=== PATIENT | female | born 1930 | race Caucasian/White ===

== ENCOUNTER 2017-01-20 18:34 | Inpatient (IN) | payer MEDICARE, BC ==
[~2017-01-20 18:34] MED LIST: ALBUTEROL17 GM; AMOXICILLIN500 MG PO; APRESOLINE25 MG/TAB PO; ASPIR 8181 MG PO; ASPIRIN EC81 MG PO; BABY ASPIRIN81 MG PO; BRILINTA90 M1 PO; CALCIUM-MAGNES1 EA10 PO; CEFDINIR300 M1 PO; CEPHALEXIN500 MG PO; COQ-10100 MG PO; COQ-1030 M1 PO; DILTIAZEM 24HR240 M3 PO; DILTIAZEM 24HR240 MG PO; DILTIAZEM ER120 M3 PO; DILTIAZEM XR240 M; FISH OIL 1,0001 EAC8 PO; FISH OIL 11000 MG/CA PO; FISH OIL SOFTGE1 CA1 PO; GAS-X125 MG PO; HYDROCODON-ACE1 EA16 PO; IMDUR30 MG PO; IMDUR60 MG PO; ISOSORBIDE MONO60 M3 PO; KEFLEX500 MG PO; LOPRESSOR50 MG; LORTAB 5-325 M1 EAC1 PO; LOSARTAN POTASS50 M1 PO; LOSARTAN POTASS50 MG PO; MACROBID 100 M100 M1 PO; MACROBID 100 M100 MG PO; METOPROLOL SUCC25 M1 PO; METOPROLOL SUCC50 M1 PO; METOPROLOL TART25 M1 PO; METOPROLOL TART50 MG PO; NIACIN50; NIACIN500 M2 PO; NIACIN500 MG PO; NIASPAN500 M1 PO; NITROGLYCERIN0.4 M2 SL; NITROSTAT0.4 MG SL; NORCO 5/325 TAB1 TAB PO; NORVASC5 M2 PO; PAROXETINE HCL10 M2 PO; PROAIR HFA8.5 GM IH; PROTONIX40 M1 PO; PROTONIX40 MG PO; RANEXA1000 M1 PO; RANEXA500 M1 PO; RANEXA500 MG PO; SUPER B COMPLEX1 CAP PO; SUPER B WITH V1 EACH PO; TYLENOL325 MG PO; ULTRAM50 MG PO; VICODIN 5/500 T1 TAB PO; VITAMIN B; VITAMIN B-500 MCG/TA PO; VITAMIN B122500 MC1 PO; VITAMIN C; VITAMIN C500 M3 PO; VITAMIN D-32000 UNI3 PO; VITAMIN D31000 UNI3 PO; WAL-PROFEN200 M1 PO
[2017-01-20 19:10] LABS: BASO % 0.2 % (0-2); HCT-HEMATOCRIT 28.5 % (34.0-49.0); HGB-HEMOGLOBIN 10.7 gm/dl (12.0-15.5); IMMATURE GRANULOCYTES ABSOLUTE 0.03 tho/cmm (0-0.03); IMMATURE GRANULOCYTES PERCENT 0.5 % (0-0.3); LYMPH % 21.6 % (20-45); LYMPH ABSOLUTE COUNT 1.4 tho/cmm (0.8-4.5); MCH (MEAN CORPUSCULAR HGB) 35.7 pg (28.0-32.0); MCHC MEAN CORPUSCULAR HGB CONC 37.5 % (32.0-36.0); MEAN PLATELET VOLUME 8.6 cmc (9.4-12.4); MONO % 10.2 % (0-12); MONOCYTE ABSOLUTE COUNT 0.6 tho/cmm (0.0-1.2); NEUTROPHIL ABSOLUTE COUNT 4.3 tho/cmm (1.6-8.0); NEUTROPHIL-AUTOMATED 4.3 tho/cmm (1.6-8.0); NEUTROPHILS % 67.5 % (40-80); PLATELET COUNT 224 tho/cmm (150-450); RED CELL DISTRIBUTION WIDTH 13.7 % (12.4-16.4); WHITE BLOOD COUNT 6.3 tho/cmm (4.0-10.0)
[2017-01-20 19:33] LABS: ALB/GLOB RATIO 0.3 (0.8-2.0); ALBUMIN 2.8 g/dl (3.5-5.0); ALKALINE PHOSPHATASE 50 U/L (33-138); ALT/SGPT 20 U/L (12-78); BILIRUBIN,TOTAL 0.5 mg/dl (0-1.5); BLOOD UREA NITROGEN 25 mg/dl (6-24); CALCIUM 8.4 mg/dl (8.5-10.5); CARBON DIOXIDE-VENOUS 23 mmol/L (22-32); CHLORIDE 87 mmol/l (96-110); GLUCOSE 107 mg/dL (70-110); eGFR VALUE FOR BLACK 68 mL/Min
[2017-01-20 19:43] LABS: ANION GAP 14 mmol/L (0-20); AST/SGOT 32 U/L (10-40); POTASSIUM 4.1 mmol/L (3.7-5.1)
[2017-01-20 19:44] LABS: SODIUM 120 mmol/L (135-145)
[2017-01-20 20:01] LABS: PROCALCITONIN 0.08 ng/ml (0.05-0.09)
[2017-01-20] MEDS ORDERED: ZITHROMAX250 M1 PO (20:15)
[2017-01-20] MEDS ORDERED: PROAIR RESPICL90 MCG INH (20:16)
[2017-01-20 21:17] LABS: ABG CO2 ARTERIAL 23 mmol/L (21-27); ARTERIAL BLD GAS O2 SATURATION 94 % (95-98); ARTERIAL BLOOD GAS PCO2 36 mmHg (32-45); ARTERIAL PO2 73 mmHg (70-100); BICARBONATE 22 mmol/L (21-28); BLOOD GAS BASE EXCESS -2 mM/L (-/+3); PH 7.41 Units (7.35-7.45)
[2017-01-21 00:14] LABS: URINE APPEARANCE CLEAR; URINE BILIRUBIN NEGATIVE (NEG); URINE BLOOD NEGATIVE (NEG); URINE COLOR BROWN; URINE GLUCOSE (UA) NEGATIVE (NEG); URINE KETONE MODERATE (NEG); URINE LEUKOCYTE ESTERASE POSITIVE (NEG); URINE NITRITE NEGATIVE (NEG); URINE PROTEIN MODERATE (NEG)
[2017-01-21 00:28] LABS: URINE EPITHELIAL CELLS 0-3 /[HPF] (0-10); URINE RBC 0 /[HPF] (0-5); URINE WBC 0-3 /[HPF] (0-5)
[2017-01-21 02:00] LABS: BASO % 0.2 % (0-2); IMMATURE GRANULOCYTES ABSOLUTE 0.03 tho/cmm (0-0.03); IMMATURE GRANULOCYTES PERCENT 0.5 % (0-0.3); LYMPH % 19.7 % (20-45); LYMPH ABSOLUTE COUNT 1.2 tho/cmm (0.8-4.5); MCHC MEAN CORPUSCULAR HGB CONC 36.7 % (32.0-36.0); MCV (MEAN CELL VOLUME) 95.5 fl (82.0-96.0); MEAN PLATELET VOLUME 8.7 cmc (9.4-12.4); MONO % 4.2 % (0-12); MONOCYTE ABSOLUTE COUNT 0.3 tho/cmm (0.0-1.2); NEUTROPHIL ABSOLUTE COUNT 4.5 tho/cmm (1.6-8.0); NEUTROPHIL-AUTOMATED 4.5 tho/cmm (1.6-8.0); NEUTROPHILS % 75.4 % (40-80); PLATELET COUNT 224 tho/cmm (150-450); RED BLOOD COUNT 3.14 mil/cmm (4.00-5.20); RED CELL DISTRIBUTION WIDTH 13.7 % (12.4-16.4)
[2017-01-21 02:10] LABS: ANION GAP 13 mmol/L (0-20); BLOOD UREA NITROGEN 18 mg/dl (6-24); CALCIUM 8.5 mg/dl (8.5-10.5); CARBON DIOXIDE-VENOUS 24 mmol/L (22-32); CHLORIDE 89 mmol/l (96-110); CREATININE 0.82 mg/dl (0.50-1.10); GLUCOSE 111 mg/dL (70-110); SODIUM 122 mmol/L (135-145); eGFR VALUE FOR BLACK 76 mL/Min
[2017-01-21 02:11] LABS: POTASSIUM 3.8 mmol/L (3.7-5.1)
--- NOTE | 2017-01-21 10:46 | NUR ---
VIRTUAL CARE NOTE: PT SITTING ON CHAIR, TV ON LOUND, CAN'T HEAR EACH OTHER WELL. TEST HOLE DRILLER WAS IN THE ROOM TO HELP PT, NO FURHTER NEEDS AT THIS TIME. CHART REVIEWED. WILL CON'T TO MONITOR.
[2017-01-21 13:31] LABS: OSMOLALITY 271 mOsm/kg (275-295)
[2017-01-22 00:12] LABS: URINE PRT/CR RATIO 2.49 Ratio (0.0-0.20); URINE TOTAL PROTEIN-RANDOM 102.1 mg/dl (<11.8)
[2017-01-22 04:57] LABS: BASO % 0.1 % (0-2); HCT-HEMATOCRIT 29.3 % (34.0-49.0); HGB-HEMOGLOBIN 10.8 gm/dl (12.0-15.5); IMMATURE GRANULOCYTES ABSOLUTE 0.09 tho/cmm (0-0.03); IMMATURE GRANULOCYTES PERCENT 0.9 % (0-0.3); LYMPH % 15.5 % (20-45); LYMPH ABSOLUTE COUNT 1.5 tho/cmm (0.8-4.5); MCH (MEAN CORPUSCULAR HGB) 35.1 pg (28.0-32.0); MCV (MEAN CELL VOLUME) 95.1 fl (82.0-96.0); MEAN PLATELET VOLUME 8.6 cmc (9.4-12.4); MONO % 4.5 % (0-12); MONOCYTE ABSOLUTE COUNT 0.4 tho/cmm (0.0-1.2); NEUTROPHIL ABSOLUTE COUNT 7.6 tho/cmm (1.6-8.0); NEUTROPHIL-AUTOMATED 7.6 tho/cmm (1.6-8.0); PLATELET COUNT 232 tho/cmm (150-450); RED BLOOD COUNT 3.08 mil/cmm (4.00-5.20); RED CELL DISTRIBUTION WIDTH 13.6 % (12.4-16.4)
[2017-01-22 04:58] LABS: MCHC MEAN CORPUSCULAR HGB CONC 36.9 % (32.0-36.0); WHITE BLOOD COUNT 9.6 tho/cmm (4.0-10.0)
[2017-01-22 05:14] LABS: OSMOLALITY 266 mOsm/kg (275-295)
[2017-01-22 05:17] LABS: ANION GAP 11 mmol/L (0-20); BLOOD UREA NITROGEN 18 mg/dl (6-24); CALCIUM 8.3 mg/dl (8.5-10.5); CARBON DIOXIDE-VENOUS 28 mmol/L (22-32); CHLORIDE 87 mmol/l (96-110); GLUCOSE 165 mg/dL (70-110); MAGNESIUM 1.8 mg/dl (1.3-2.6); SODIUM 123 mmol/L (135-145)
[2017-01-22 05:23] LABS: CREATININE 0.85 mg/dl (0.50-1.10); eGFR VALUE FOR BLACK 72 mL/Min
[2017-01-23 05:01] LABS: ANION GAP 11 mmol/L (0-20); BLOOD UREA NITROGEN 23 mg/dl (6-24); CALCIUM 8.5 mg/dl (8.5-10.5); CARBON DIOXIDE-VENOUS 29 mmol/L (22-32); CHLORIDE 88 mmol/l (96-110); CREATININE 0.86 mg/dl (0.50-1.10); MAGNESIUM 1.9 mg/dl (1.3-2.6); POTASSIUM 3.4 mmol/L (3.7-5.1); SODIUM 125 mmol/L (135-145); eGFR VALUE FOR BLACK 71 mL/Min
[2017-01-23 05:22] LABS: GLUCOSE 125 mg/dL (70-110)
[2017-01-24 05:33] LABS: BASO % 0.2 % (0-2); HCT-HEMATOCRIT 30.5 % (34.0-49.0); IMMATURE GRANULOCYTES PERCENT 1.6 % (0-0.3); LYMPH % 25.3 % (20-45); LYMPH ABSOLUTE COUNT 1.6 tho/cmm (0.8-4.5); MCH (MEAN CORPUSCULAR HGB) 34.5 pg (28.0-32.0); MCHC MEAN CORPUSCULAR HGB CONC 36.1 % (32.0-36.0); MCV (MEAN CELL VOLUME) 95.6 fl (82.0-96.0); MEAN PLATELET VOLUME 8.6 cmc (9.4-12.4); MONO % 6.2 % (0-12); MONOCYTE ABSOLUTE COUNT 0.4 tho/cmm (0.0-1.2); NEUTROPHIL ABSOLUTE COUNT 4.2 tho/cmm (1.6-8.0); NEUTROPHIL-AUTOMATED 4.2 tho/cmm (1.6-8.0); NEUTROPHILS % 66.7 % (40-80); PLATELET COUNT 239 tho/cmm (150-450); RED BLOOD COUNT 3.19 mil/cmm (4.00-5.20); RED CELL DISTRIBUTION WIDTH 13.5 % (12.4-16.4); WHITE BLOOD COUNT 6.3 tho/cmm (4.0-10.0)
[2017-01-24 05:45] LABS: BLOOD UREA NITROGEN 15 mg/dl (6-24); CALCIUM 8.3 mg/dl (8.5-10.5); CARBON DIOXIDE-VENOUS 30 mmol/L (22-32); CHLORIDE 87 mmol/l (96-110); CREATININE 0.68 mg/dl (0.50-1.10); GLUCOSE 97 mg/dL (70-110); SODIUM 126 mmol/L (135-145); eGFR VALUE FOR BLACK >90 mL/Min
[2017-01-24 05:50] LABS: ANION GAP 12 mmol/L (0-20); MAGNESIUM 1.8 mg/dl (1.3-2.6); POTASSIUM 3.4 mmol/L (3.7-5.1)
[2017-01-24 06:01] LABS: OSMOLALITY 264 mOsm/kg (275-295)
[2017-01-24 08:40] LABS: PROTHROMBIN TIME 12.1 SECONDS (9.0-13.6)
[2017-01-25 06:24] LABS: BASO % 0.1 % (0-2); HCT-HEMATOCRIT 30.7 % (34.0-49.0); HGB-HEMOGLOBIN 11.3 gm/dl (12.0-15.5); IMMATURE GRANULOCYTES ABSOLUTE 0.11 tho/cmm (0-0.03); IMMATURE GRANULOCYTES PERCENT 1.4 % (0-0.3); LYMPH % 15.6 % (20-45); LYMPH ABSOLUTE COUNT 1.2 tho/cmm (0.8-4.5); MCH (MEAN CORPUSCULAR HGB) 34.8 pg (28.0-32.0); MCV (MEAN CELL VOLUME) 94.5 fl (82.0-96.0); MEAN PLATELET VOLUME 8.7 cmc (9.4-12.4); MONO % 4.8 % (0-12); MONOCYTE ABSOLUTE COUNT 0.4 tho/cmm (0.0-1.2); NEUTROPHIL ABSOLUTE COUNT 6.1 tho/cmm (1.6-8.0); NEUTROPHIL-AUTOMATED 6.1 tho/cmm (1.6-8.0); NEUTROPHILS % 78.1 % (40-80); PLATELET COUNT 268 tho/cmm (150-450); RED BLOOD COUNT 3.25 mil/cmm (4.00-5.20); RED CELL DISTRIBUTION WIDTH 13.3 % (12.4-16.4); WHITE BLOOD COUNT 7.9 tho/cmm (4.0-10.0)
[2017-01-25 06:33] LABS: BLOOD UREA NITROGEN 12 mg/dl (6-24); CALCIUM 8.4 mg/dl (8.5-10.5); CARBON DIOXIDE-VENOUS 27 mmol/L (22-32); CREATININE 0.72 mg/dl (0.50-1.10); GLUCOSE 123 mg/dL (70-110); eGFR VALUE FOR BLACK 89 mL/Min
[2017-01-25 06:34] LABS: MCHC MEAN CORPUSCULAR HGB CONC 36.8 % (32.0-36.0)
[2017-01-25 09:44] LABS: SODIUM 122 mmol/L (135-145)
[2017-01-25 09:45] LABS: ANION GAP 13 mmol/L (0-20); CHLORIDE 85 mmol/l (96-110); POTASSIUM 3.1 mmol/L (3.7-5.1)
[2017-01-26 08:22] LABS: ANION GAP 11 mmol/L (0-20); BLOOD UREA NITROGEN 12 mg/dl (6-24); CALCIUM 8.4 mg/dl (8.5-10.5); CARBON DIOXIDE-VENOUS 28 mmol/L (22-32); CHLORIDE 88 mmol/l (96-110); CREATININE 0.67 mg/dl (0.50-1.10); GLUCOSE 123 mg/dL (70-110); MAGNESIUM 1.8 mg/dl (1.3-2.6); POTASSIUM 3.2 mmol/L (3.7-5.1); SODIUM 124 mmol/L (135-145); eGFR VALUE FOR BLACK >90 mL/Min
[2017-01-26 08:48] LABS: BASO % 0.1 % (0-2); EOS % 0.4 % (0-7); HCT-HEMATOCRIT 29.1 % (34.0-49.0); HGB-HEMOGLOBIN 10.5 gm/dl (12.0-15.5); IMMATURE GRANULOCYTES ABSOLUTE 0.08 tho/cmm (0-0.03); IMMATURE GRANULOCYTES PERCENT 1.1 % (0-0.3); LYMPH % 18.7 % (20-45); LYMPH ABSOLUTE COUNT 1.3 tho/cmm (0.8-4.5); MCH (MEAN CORPUSCULAR HGB) 34.2 pg (28.0-32.0); MCHC MEAN CORPUSCULAR HGB CONC 36.1 % (32.0-36.0); MCV (MEAN CELL VOLUME) 94.8 fl (82.0-96.0); MEAN PLATELET VOLUME 8.5 cmc (9.4-12.4); MONO % 6.7 % (0-12); MONOCYTE ABSOLUTE COUNT 0.5 tho/cmm (0.0-1.2); NEUTROPHIL ABSOLUTE COUNT 5.2 tho/cmm (1.6-8.0); NEUTROPHIL-AUTOMATED 5.2 tho/cmm (1.6-8.0); PLATELET COUNT 305 tho/cmm (150-450); RED BLOOD COUNT 3.07 mil/cmm (4.00-5.20); RED CELL DISTRIBUTION WIDTH 13.3 % (12.4-16.4); WHITE BLOOD COUNT 7.2 tho/cmm (4.0-10.0)
--- NOTE | 2017-01-26 20:19 | NUR ---
VIRTUAL CARE NOTE: PT. IN THE CHAIR WITH TV BLOCKING SOME VIEW OF THE PT. SHE DOES HAVE O2 ON, UNABLE TO VIEW THE AMOUNTS. PT. IS ALERT, HX OF CONFUSION, EDUCATON REVIEWED ON HOW TO CALL THE NURSE AND INSTRUCTED TO NOT GET UP WITHOUT THE HELP OF THE NURSING STAFF. VOICES VERBAL UNDERSTANDING. STATES HAS BEEN USING HER BREATHING THING. PRAISE GIVEN FOR USING ACAPELLA VALVE. IV IS ALARMING, FLOOR NURSE PAGED. INSTRUCTED PT. TO CALL FOR FURTHER NEEDS IF NEEDED. STATES VERBAL UNDERSTANDING.
[2017-01-27 05:44] LABS: HCT-HEMATOCRIT 29.5 % (34.0-49.0); HGB-HEMOGLOBIN 10.7 gm/dl (12.0-15.5); MCV (MEAN CELL VOLUME) 95.5 fl (82.0-96.0); RED CELL DISTRIBUTION WIDTH 13.6 % (12.4-16.4)
[2017-01-27 05:55] LABS: ANION GAP 11 mmol/L (0-20); BLOOD UREA NITROGEN 12 mg/dl (6-24); CALCIUM 8.6 mg/dl (8.5-10.5); CARBON DIOXIDE-VENOUS 29 mmol/L (22-32); CHLORIDE 90 mmol/l (96-110); CREATININE 0.72 mg/dl (0.50-1.10); GLUCOSE 110 mg/dL (70-110); SODIUM 126 mmol/L (135-145); eGFR VALUE FOR BLACK 89 mL/Min
[2017-01-27 05:57] LABS: POTASSIUM 3.5 mmol/L (3.7-5.1)
[2017-01-28 06:30] LABS: BASO % 0.4 % (0-2); EOS % 1.1 % (0-7); EOSINOPHIL ABSOLUTE COUNT 0.1 tho/cmm (0.0-0.7); HCT-HEMATOCRIT 28.8 % (34.0-49.0); HGB-HEMOGLOBIN 10.4 gm/dl (12.0-15.5); IMMATURE GRANULOCYTES ABSOLUTE 0.15 tho/cmm (0-0.03); IMMATURE GRANULOCYTES PERCENT 1.8 % (0-0.3); LYMPH % 14.1 % (20-45); LYMPH ABSOLUTE COUNT 1.2 tho/cmm (0.8-4.5); MCH (MEAN CORPUSCULAR HGB) 34.7 pg (28.0-32.0); MCHC MEAN CORPUSCULAR HGB CONC 36.1 % (32.0-36.0); MEAN PLATELET VOLUME 8.2 cmc (9.4-12.4); MONO % 8.9 % (0-12); MONOCYTE ABSOLUTE COUNT 0.7 tho/cmm (0.0-1.2); NEUTROPHIL ABSOLUTE COUNT 6.1 tho/cmm (1.6-8.0); NEUTROPHIL-AUTOMATED 6.1 tho/cmm (1.6-8.0); NEUTROPHILS % 73.7 % (40-80); PLATELET COUNT 354 tho/cmm (150-450); RED CELL DISTRIBUTION WIDTH 13.8 % (12.4-16.4); WHITE BLOOD COUNT 8.2 tho/cmm (4.0-10.0)
[2017-01-28 06:43] LABS: ANION GAP 11 mmol/L (0-20); BLOOD UREA NITROGEN 10 mg/dl (6-24); CALCIUM 8.7 mg/dl (8.5-10.5); CARBON DIOXIDE-VENOUS 30 mmol/L (22-32); CHLORIDE 91 mmol/l (96-110); CREATININE 0.84 mg/dl (0.50-1.10); GLUCOSE 120 mg/dL (70-110); POTASSIUM 3.5 mmol/L (3.7-5.1); SODIUM 128 mmol/L (135-145); eGFR VALUE FOR BLACK 73 mL/Min
[2017-01-29 06:21] LABS: BASO % 0.3 % (0-2); EOS % 2.2 % (0-7); EOSINOPHIL ABSOLUTE COUNT 0.2 tho/cmm (0.0-0.7); HCT-HEMATOCRIT 28.8 % (34.0-49.0); HGB-HEMOGLOBIN 10.1 gm/dl (12.0-15.5); IMMATURE GRANULOCYTES ABSOLUTE 0.11 tho/cmm (0-0.03); IMMATURE GRANULOCYTES PERCENT 1.4 % (0-0.3); LYMPH % 12.3 % (20-45); LYMPH ABSOLUTE COUNT 0.9 tho/cmm (0.8-4.5); MCHC MEAN CORPUSCULAR HGB CONC 35.1 % (32.0-36.0); MEAN PLATELET VOLUME 8.2 cmc (9.4-12.4); MONO % 8.7 % (0-12); MONOCYTE ABSOLUTE COUNT 0.7 tho/cmm (0.0-1.2); NEUTROPHIL ABSOLUTE COUNT 5.7 tho/cmm (1.6-8.0); NEUTROPHIL-AUTOMATED 5.7 tho/cmm (1.6-8.0); NEUTROPHILS % 75.1 % (40-80); PLATELET COUNT 364 tho/cmm (150-450); RED BLOOD COUNT 2.97 mil/cmm (4.00-5.20); RED CELL DISTRIBUTION WIDTH 14.2 % (12.4-16.4); WHITE BLOOD COUNT 7.6 tho/cmm (4.0-10.0)
[2017-01-29 06:33] LABS: ANION GAP 10 mmol/L (0-20); BLOOD UREA NITROGEN 11 mg/dl (6-24); CARBON DIOXIDE-VENOUS 28 mmol/L (22-32); CHLORIDE 92 mmol/l (96-110); CREATININE 0.88 mg/dl (0.50-1.10); GLUCOSE 111 mg/dL (70-110); POTASSIUM 3.8 mmol/L (3.7-5.1); SODIUM 126 mmol/L (135-145); eGFR VALUE FOR BLACK 69 mL/Min
[2017-01-29] MEDS ORDERED: RESTORIL15 M1 PO (10:32)
[2017-01-29] MEDS ORDERED: COZAAR100 M1 PO (10:32)
[2017-01-29] MEDS ORDERED: POTASSIUM CHLO20 ME3 PO (10:32)
[2017-01-29] MEDS ORDERED: LASIX20 M1 PO (10:32)
[2017-01-29] MEDS ORDERED: NYSTATIN100000 UNI SSW (14:23)
== END 2017-01-29 15:05 | DRG 193 ==
LOC: EDMED 18:34 → EMR2 22:42 → 5WD 23:44
PROVIDERS: Emergency Medicine; Family Medicine; Internal Medicine; Internal Medicine Nephrology; Radiology Diagnostic Radiology; ADMIT Hospitalist
PROC: 05H633Z Insertion of Infusion Device into Left Subclavian Vein, Percutaneous Approach (ICD-10-PCS; 2017-01-22)
PROC: 07DR3ZX Extraction of Iliac Bone Marrow, Percutaneous Approach, Diagnostic (ICD-10-PCS; principal; 2017-01-24)
DX: J18.9 Pneumonia, unspecified organism (principal); I50.31 Acute diastolic (congestive) heart failure; D89.2 Hypergammaglobulinemia, unspecified; E87.1 Hypo-osmolality and hyponatremia; F03.90 Unspecified dementia, unspecified severity, without behavioral disturbance, psychotic disturbance, mood disturbance, and anxiety; Y95 Nosocomial condition; I25.10 Atherosclerotic heart disease of native coronary artery without angina pectoris; I11.0 Hypertensive heart disease with heart failure; E78.5 Hyperlipidemia, unspecified; J45.909 Unspecified asthma, uncomplicated; K21.9 Gastro-esophageal reflux disease without esophagitis; Z88.2 Allergy status to sulfonamides; Z88.8 Allergy status to other drugs, medicaments and biological substances; D64.9 Anemia, unspecified; Z79.82 Long term (current) use of aspirin; E87.6 Hypokalemia; E88.09 Other disorders of plasma-protein metabolism, not elsewhere classified
CPT/HCPCS: C1751; C1830; G0364; J1630; J1650; J1940; J2185; J2250; J2543; J2930; J3010; J3370; J7030; J7050